=== PATIENT | female | born 1975 | race African-American/Black ===

== ENCOUNTER 2018-01-21 06:15 | Observation (INO) | payer OTHER ==
[~2018-01-21 06:15] MED LIST: ESTROGENS, CONJ VAGINAL CREAM 30GM TUBE.; METHYLENE BLUE 1% 10 ML VIAL.; SURGICEL HEMOSTAT 4X8 EACH.
[2018-01-21] MEDS: IV RINGERS,LACTATED 1000ML 1,000 ML IV ×3 (06:49→17:08)
[2018-01-21 06:50] LABS: ADD MAN DIFF? NO
[2018-01-21] MEDS ORDERED: fentaNYL PF VIAL 100 MCG/2 ML VIAL IV (07:00)
[2018-01-21] MEDS ORDERED: LIDOCAINE 1% PF 2 ML VIAL. ID (07:00)
[2018-01-21] MEDS ORDERED: MORPHINE SULFATE 2 MG/ML DISP.SYRIN. IV (07:00)
[2018-01-21] MEDS ORDERED: HYDROmorphone 2 MG/ML VIAL IV (07:00)
[2018-01-21] MEDS ORDERED: ONDANSETRON PF 4 MG/2 ML VIAL. IV ×2 (07:00→10:00)
[2018-01-21 07:03] LABS: BASO % 1 % (0-3); EOS # 0.1 x10^3/uL (0.0-0.7); EOS % 2 % (0-3); HEMATOCRIT 35.7 % (36.0-47.0); HEMOGLOBIN 11.3 g/dL (12.0-15.5); LYMPH # 1.2 x10^3/uL (1.0-4.8); LYMPH % 25 % (24-48); MEAN CORPUSCULAR HEMOGLOBIN 28 pg (25-35); MEAN CORPUSCULAR HGB CONC 32 g/dL (31-37); MEAN CORPUSCULAR VOLUME 88 fL (79-100); MONO # 0.3 x10^3/uL (0.0-1.1); MONO % 7 % (0-9); NEUT # 3.3 x10^3uL (1.8-7.7); NEUT % 65 % (31-73); PLATELET COUNT 175 x10^3/uL (140-400); RED BLOOD COUNT 4.07 x10^6/uL (3.50-5.40); RED CELL DISTRIBUTION WIDTH 22.4 % (11.5-14.5)
[2018-01-21] MEDS ORDERED: PROPOFOL 20 ML IV (07:13)
[2018-01-21] MEDS ORDERED: LIDOCAINE 1% PF 5 ML VIAL. (07:13)
[2018-01-21] MEDS ORDERED: SUCCINYLCHOLINE 200 MG/10 ML VIAL. (07:13)
[2018-01-21] MEDS ORDERED: fentaNYL PF VIAL 100 MCG/2 ML VIAL ×4 (07:13→10:28)
[2018-01-21] MEDS ORDERED: ROCURONIUM 50 MG/5 ML VIAL. (07:13)
[2018-01-21] MEDS ORDERED: ceFAZolin 2GM PREMIX 2 GM/50 ML BAG IV (08:00)
[2018-01-21 08:02] LABS: NEG OBC UR NEG; POS OBC UR POS
[2018-01-21 08:03] LABS: U PREG PATIENT NEGATIVE (NEG)
[2018-01-21] MEDS: LIDOCAINE 1%/EPI 1:100,000 20 ML VIAL. (08:47)
[2018-01-21] MEDS: BUPIVACAINE-EPI 0.25%-1:200000 50 ML VIAL. (08:47)
[2018-01-21] MEDS ORDERED: GLYCOPYRROLATE 1 MG/5 ML VIAL. (08:55)
[2018-01-21] MEDS ORDERED: ONDANSETRON PF 4 MG/2 ML VIAL. (08:55)
[2018-01-21] MEDS ORDERED: NEOSTIGMINE 10 MG/10 ML VIAL. (08:55)
[2018-01-21] MEDS ORDERED: diphenhydrAMINE 50 MG/ML VIAL IV (10:00)
[2018-01-21] MEDS ORDERED: PROCHLORPERAZINE 10 MG/2 ML VIAL. IV (10:00)
[2018-01-21] MEDS ORDERED: diphenhydrAMINE HCL 25 MG CAPSULE PO (10:00)
[2018-01-21] MEDS ORDERED: DEXTROSE 50% 25 GM / 50ML DISP.SYRIN. IV (10:00)
[2018-01-21] MEDS ORDERED: CALCIUM CARBONATE 500 MG TAB.CHEW PO (10:00)
[2018-01-21] MEDS ORDERED: ZOLPIDEM 5 MG TABLET. PO (10:00)
[2018-01-21] MEDS ORDERED: SIMETHICONE 80 MG TAB.CHEW PO (10:00)
[2018-01-21] MEDS ORDERED: 0.9 % SODIUM CHLORIDE 10 ML DISP.SYRIN. IV (10:00)
[2018-01-21] MEDS ORDERED: PROCHLORPERAZINE 10 MG/2 ML VIAL. (10:13)
[2018-01-21] MEDS: fentaNYL PF VIAL 100 MCG/2 ML VIAL IV ×4 (10:16→10:53)
[2018-01-21] MEDS: PROCHLORPERAZINE 10 MG/2 ML VIAL. IV (10:22)
[2018-01-21] MEDS ORDERED: DESFLURANE 61 TO 120 MINUTES IH (10:43)
[2018-01-21] MEDS ORDERED: DEXAMETHASONE SOD PHOS 20 MG/5 ML VIAL. (10:43)
[2018-01-21 11:19] LABS: PLT ESTIMATE ADEQUATE (ADEQUATE)
[2018-01-21 11:20] LABS: ANISOCYTOSIS PRESENT; MICROCYTOSIS PRESENT; SCHISTOCYTES OCC; SPHEROCYTES OCC; TARGET CELLS PRESENT
[2018-01-21] MEDS: KETOROLAC 30 MG/ML INJ. IV ×2 (12:16→19:36)
[2018-01-21] MEDS: GABAPENTIN 300 MG CAPSULE. PO ×2 (14:12→21:36)
[2018-01-21] MEDS: oxyCODONE/APAP 5/325 1 TAB TABLET PO (21:36)
[2018-01-22] MEDS: GABAPENTIN 300 MG CAPSULE. PO ×2 (05:32→11:13)
[2018-01-22] MEDS: oxyCODONE/APAP 5/325 1 TAB TABLET PO ×2 (05:32→11:13)
[2018-01-22 07:44] LABS: ADD MAN DIFF? NO
[2018-01-22 07:47] LABS: BASO % 0 % (0-3); EOS % 0 % (0-3); HEMATOCRIT 31.1 % (36.0-47.0); HEMOGLOBIN 10.3 g/dL (12.0-15.5); LYMPH # 1.3 x10^3/uL (1.0-4.8); LYMPH % 15 % (24-48); MEAN CORPUSCULAR HEMOGLOBIN 29 pg (25-35); MEAN CORPUSCULAR HGB CONC 33 g/dL (31-37); MEAN CORPUSCULAR VOLUME 87 fL (79-100); MONO # 0.5 x10^3/uL (0.0-1.1); MONO % 5 % (0-9); NEUT # 6.9 x10^3uL (1.8-7.7); NEUT % 79 % (31-73); PLATELET COUNT 155 x10^3/uL (140-400); RED CELL DISTRIBUTION WIDTH 21.7 % (11.5-14.5); WHITE BLOOD COUNT 8.8 x10^3/uL (4.0-11.0)
== END 2018-01-22 12:30 | disposition home or self-care (01) ==
LOC: SURG 06:15 → 3 NORTH 09:58
DX: D25.9 Leiomyoma of uterus, unspecified (principal); N83.201 Unspecified ovarian cyst, right side; N83.202 Unspecified ovarian cyst, left side; N92.0 Excessive and frequent menstruation with regular cycle; N72 Inflammatory disease of cervix uteri; N80.0 Endometriosis of uterus
CPT/HCPCS: 36415; 81025; 85025; 86850; 86900; 86901; 88307; 96374; 96376; A4215; G0378; G0379; J0330; J0690; J0780; J1100; J1885; J2405; J2704; J2710; J3010; J3490; J7030; J7120; Q9968

== ENCOUNTER → 2021-10-17 | Outpatient (CLI) | payer MEDICAID ==
[2018-01-22 11:30] VITALS: BP 151/91
[~2021-10-17] MED LIST changes: +AMLO-187 PO; +DOCU-109 PO; -ESTROGENS, CONJ VAGINAL CREAM 30GM TUBE.; +FERR325T14 PO; +IBUP-1060 PO; +LORA10TA3 PO; +MEDR10TA PO; -METHYLENE BLUE 1% 10 ML VIAL.; +OXYC1TAB15 PO; -SURGICEL HEMOSTAT 4X8 EACH.; +TRAZ-123 PO
[2021-10-17] MEDS: IOHEXOL 300 MG/ML 100ML VIAL. IV ONE (10:45)
[2021-10-17] MEDS: IOHEXOL 240 MG/ML 50ML VIAL. PO ONE (10:45)
--- NOTE | 2021-10-17 12:54 | RAD ---
CT ABDOMEN+PELVIS W History: Abdominal pain Comparison: None. Technique: CT of the abdomen and pelvis with oral and intravenous contrast. Findings: The lung bases are clear. The liver is unremarkable. Status post cholecystectomy. The pancreas, splee n, adrenal glands and kidneys are unremarkable. The bladder is decompressed. No pelvic masses. Diffuse mild gastric wall thickening. Small bowel is unremarkable. Normal appendix. No colonic wall t hickening or pericolonic inflammatory changes. No abnormal colonic stool burden. No abdominopelvic fr ee air or free fluid. No adenopathy. Mild aortoiliac calcification without aneurysm. The soft tissues are unremarkable. Degenerative changes of the lower lumbar spine without acute osseous abnormality. Impression: 1. Mild diffuse gastric wall thickening may represent gastritis versus artifact of incompletely dist ended stomach. Correlate with symptoms and consider endoscopy. ------ Exposure: One or more of the following individualized dose reduction techniques were utilized for thi s examination: 1. Automated exposure control 2. Adjustment of the mA and/or kV according to patient size 3. Use of iterative reconstruction technique. Electronically signed by: Brannon Fuentes MD (10/17/2021 12:51 PM) [facility]
== END ==
LOC: CT 10:07
PROVIDERS: ATTEND Family Medicine
DX: K31.89 Other diseases of stomach and duodenum (principal); I70.0 Atherosclerosis of aorta; M47.816 Spondylosis without myelopathy or radiculopathy, lumbar region; Z90.49 Acquired absence of other specified parts of digestive tract
CPT/HCPCS: 74177; Q9966; Q9967

== ENCOUNTER → 2021-12-16 | Outpatient (CLI) | payer MEDICAID ==
[2018-01-22 11:30] VITALS: BP 151/91
--- NOTE | 2021-12-16 12:00 | RAD ---
EXAM: Left foot, 3 views. HISTORY: Pain. COMPARISON: None. FINDINGS: 3 views of the left foot are obtained. There is a mildly displaced oblique fracture of the distal fifth metatarsal with small butterfly fracture fragment. There is overlying soft tissue edema. There is no foreign body. There is a tiny plantar spur. There is enthesopathy at Achilles tendon ins ertion. IMPRESSION: Mildly displaced distal fifth metatarsal fracture. Electronically signed by: Lory Camacho MD (12/16/2021 11:57 AM) [id number]
== END ==
LOC: RAD 11:02
PROVIDERS: ATTEND Family Medicine
DX: S92.352A Displaced fracture of fifth metatarsal bone, left foot, initial encounter for closed fracture (principal); M76.62 Achilles tendinitis, left leg; M77.32 Calcaneal spur, left foot; X58.XXXA Exposure to other specified factors, initial encounter; Y93.89 Activity, other specified; Y92.89 Other specified places as the place of occurrence of the external cause; Y99.8 Other external cause status
CPT/HCPCS: 73630